=== PATIENT | male | born 2005 | race Two or more races ===

== ENCOUNTER 2024-01-29 01:35 | Emergency (ER) | payer MEDICAID ==
[~2024-01-29] VITALS: Ht 172.7 cm; Wt 57.3 kg
[2024-01-29] MEDS ORDERED: AZIT-164 PO (03:20)
[2024-01-29] MEDS: ketorolac trometh 30MG/ML vial 30 MG/ML VIAL IV ONE (03:28)
[2024-01-29] MEDS: azithromycin 250mg tablet PO ONE (03:38)
[2024-01-29 04:02] VITALS: BP 112/74; PULSE 76; RESP 14; TEMP 98.3; O2SAT 98
== END 2024-01-29 04:04 | disposition home or self-care (01) ==
LOC: ER 01:38
DX: J18.9 Pneumonia, unspecified organism (principal); M94.0 Chondrocostal junction syndrome [Tietze]
CPT/HCPCS: 71046; 87502; 87503; 96374; 99284; J1885